=== PATIENT | female | born 1980 | race Caucasian/White ===

== ENCOUNTER 2020-10-16 18:22 | Emergency (ER) | payer BC, SELFPAY ==
[2020-10-16 18:27] VITALS: BP 119/79; PULSE 80; RESP 16; TEMP 36.5; O2SAT 100; BMI 25.8
--- NOTE | 2020-10-16 18:35 | XRR_ITS ---
PROCEDURE INFORMATION: Exam: XR Left Ankle Exam date and time: 10/16/2020 6:35 PM Age: 40 years old Clinical indication: Injury or trauma; Fall; Blunt trauma; Ankle; Left TECHNIQUE: Imaging protocol: XR Left ankle. Views: 3 or more views. COMPARISON: No relevant prior studies available. FINDINGS: Bones/joints: Normal. Soft tissues: There is soft tissue swelling overlies the lateral malleolus. XR/XR ankle LT min 3V* [id number] IMPRESSION: There are no acute osseous findings.
--- NOTE | 2020-10-16 20:14 | ED_ITS ---
HPI - Extremity Problem General: Chief complaint: Extremity Injury, Lower Stated complaint: left ankle Time Seen by Provider: 10/16/20 19:56 History of Present Illness: HPI Narrative: Walk on sidewalk ankle slipped off and now she has pain to the lateral aspect ankle happened about an hour and half ago. Complaint: joint swelling and joint pain Onset (ago): hour(s) Pain Consistency: constant Location: left and lower extremity Severity scale (1-10): 4 Quality: aching Radiation: none Relieving factors: immobilization Exacerbating factors: range of motion and weight bearing Associated symptoms: Reports no associated symptoms; Deny fever(s) Review of Systems Const: Denies: fever(s) or chills Musc: Reports: joint pain (Left ankle) and joint swelling Psych: Denies: anxiety or depression COUNT INCLUDES THE [facility] ED Female Reproductive History: Date of last menstrual period: 10/14/20 Physical Exam Const: COMMON NORMALS: no acute distress Extremity: LEFT LOWER EXTREMITY: Yes ankle joint (Left ankle with swelling to the lateral malleus area no bruising redness po) Psych: COMMON NORMALS: mental status grossly normal Course Vital Signs: Vital signs: Vital Signs Temperature 97.7 F 10/16/20 18:27 Pulse Rate 80 10/16/20 18:27 Respiratory Rate 16 10/16/20 18:27 Blood Pressure 119/79 10/16/20 18:27 Pulse Oximetry 100 10/16/20 18:27 Coding Level of Care Code ED Pumper Gager for Peyton Matson
== END 2020-10-16 20:58 | disposition home or self-care (01) ==
PROVIDERS: Emergency Provider Nurse Practitioner Family
DX: M25.572 Pain in left ankle and joints of left foot (principal)
CPT/HCPCS: 12345; 73610; 99281; 99282